=== PATIENT | female | born 1950 | race Caucasian/White ===

== ENCOUNTER 2023-09-15 23:38 | Inpatient (IN) | payer MEDICARE, MEDICAID ==
[~2023-09-15] VITALS: Ht 162.6 cm; Wt 70.8 kg
[2023-09-16 00:37] LABS: BASOPHILS % 0.8 % (0.0-2.0); EOSINOPHILS % 0.6 % (0.0-5.0); HEMATOCRIT. 36.1 % (36.0-48.0); LYMPHOCYTES % 24.3 % (20.0-50.0); MEAN CORPUSCULAR HEMOGLOBIN 32.1 pg (28.0-32.0); MEAN CORPUSCULAR HGB CONC 33.3 g/dL (31.0-37.0); MEAN CORPUSCULAR VOLUME 96.5 fL (81.0-99.0); MEAN PLATELET VOLUME 6.8 fl (7.4-10.4); MONOCYTES % 7.3 % (2.0-8.0); PLATELET 283 x1000/uL (130-400); RED BLOOD CELL COUNT 3.74 mill/uL (4.2-5.4); WHITE BLOOD COUNT 7.4 x1000/uL (4.5-11.0)
[2023-09-16 00:39] LABS: CHLORIDE 105 mEq/L (98-107); POTASSIUM 4.1 mEq/L (3.5-5.1); SODIUM 135 mEq/L (136-145)
[2023-09-16 00:40] LABS: CARBON DIOXIDE 26 mEq/L (21-32)
[2023-09-16 00:41] LABS: CALCIUM 9.1 mg/dL (8.7-10.4)
[2023-09-16 00:45] LABS: CREATININE 0.9 mg/dL (0.6-1.0); GLUCOSE 131 mg/dL (70-105); UREA NITROGEN BLOOD 13 mg/dL (9-23)
[2023-09-16 04:01] LABS: CLARITY URINE CLEAR (CLEAR); COLOR URINE YELLOW (YELLOW); GLUCOSE URINE NEGATIVE (NEGATIVE); KETONES URINE NEGATIVE (NEGATIVE); LEUKOCYTE ESTERASE URINE 2+ (NEGATIVE); NITRITE URINE NEGATIVE (NEGATIVE); OCCULT BLOOD URINE NEGATIVE (NEGATIVE); PROTEIN URINE NEGATIVE (NEGATIVE); SPECIFIC GRAVITY URINE 1.018 (1.005-1.030); UROBILINOGEN URINE 0.2 E.U./dL (0.2-1.0)
[2023-09-16 05:27] LABS: SQUAMOUS EPITHELIAL CELL URINE FEW /lpf (RARE/1+)
[2023-09-16 05:28] LABS: RBC URINE 0-2 /hpf (0-2)
[2023-09-16 05:30] LABS: BACTERIA URINE NONE SEEN
[2023-09-16] MEDS: KETOROLAC 30MG/ML VIAL IV ONE (05:44)
[2023-09-16] MEDS: ACETAMINOPHEN 500MG TABLET PO ONE (05:46)
[2023-09-16] MEDS: MORPHINE SULFATE 4 MG/ML INJ (FOR IV/IM USE) IM ONE (05:54)
[2023-09-16] MEDS ORDERED: CLONIDINE 0.1MG TABLET PO PRN (08:30)
[2023-09-16] MEDS ORDERED: MAGNESIUM/ALUMINUM HYDROXIDE/SIMETHICONE 30ML UDC PO PRN (08:30)
[2023-09-16] MEDS ORDERED: ACETAMINOPHEN 325MG TABLET PO PRN (08:30)
[2023-09-16] MEDS ORDERED: HYDROCODONE/ACETAMINOPHEN 5/325MG TABLET PO PRN (08:30)
[2023-09-16] MEDS ORDERED: ONDANSETRON HCL 4MG/2ML INJ IV PRN (08:30)
[2023-09-16] MEDS ORDERED: ENOXAPARIN 40MG/0.4ML SYR SUBCUT SCH (08:30)
[2023-09-16] MEDS ORDERED: GUAIFENESIN 200MG/10ML SUGAR FREE UDC PO PRN (08:30)
[2023-09-16] MEDS ORDERED: NALOXONE HCL 0.4MG/ML VIAL IV PRN (09:45)
[2023-09-16 10:36] VITALS: BP 139/69; PULSE 88; RESP 20; TEMP 97.5
[2023-09-16 12:00] VITALS: BP 111/62; PULSE 80; RESP 18; TEMP 97
[2023-09-16 12:01] LABS: HEPATITIS B SURFACE ANTIGEN NEGATIVE (Negative)
[2023-09-16 12:21] LABS: HEPATITIS A AB IGM NEGATIVE (Negative)
[2023-09-16 12:23] LABS: HEPATITIS B CORE AB IGM NEGATIVE (Negative); HEPATITIS C AB NON REACTIVE (Neg) (Negative)
[2023-09-16 16:00] VITALS: BP 119/56; PULSE 94; RESP 18; TEMP 98.2
[2023-09-16] MEDS: ENOXAPARIN 40MG/0.4ML SYR SUBCUT SCH (16:18)
[2023-09-16] MEDS: SODIUM CHLORIDE 0.9% 1,000 ML IV SCH (16:18)
[2023-09-16 16:30] LABS: CREATINE KINASE 65 IU/L (34-145)
[2023-09-16 16:33] LABS: TROPONIN I HIGH SENSITIVITY < 4 ng/L (3.0-34)
[2023-09-16 20:00] VITALS: BP 113/75; PULSE 81; RESP 18; TEMP 97.5
[2023-09-16] MEDS: FAMOTIDINE 20MG TABLET PO SCH (21:00)
[2023-09-16 23:56] LABS: CREATINE KINASE 62 IU/L (34-145)
[2023-09-17] VITALS: BP 92/59; PULSE 78; RESP 18; TEMP 97.3
[2023-09-17 00:02] LABS: TROPONIN I HIGH SENSITIVITY < 4 ng/L (3.0-34)
[2023-09-17 04:00] VITALS: BP 111/65; PULSE 82; RESP 18; TEMP 97.4
[2023-09-17 06:02] LABS: BASOPHILS % 0.9 % (0.0-2.0); HEMATOCRIT. 33.1 % (36.0-48.0); HEMOGLOBIN. 11.2 g/dL (12.0-16.0); LYMPHOCYTES % 45.9 % (20.0-50.0); MEAN CORPUSCULAR HEMOGLOBIN 31.9 pg (28.0-32.0); MEAN CORPUSCULAR HGB CONC 33.9 g/dL (31.0-37.0); MEAN PLATELET VOLUME 6.8 fl (7.4-10.4); MONOCYTES % 9.1 % (2.0-8.0); NEUTROPHILS % 42.1 % (40.0-76.0); PLATELET 267 x1000/uL (130-400); RED BLOOD CELL COUNT 3.52 mill/uL (4.2-5.4); RED CELL DISTRIBUTION WIDTH 15.1 % (11.6-14.6); WHITE BLOOD COUNT 5.1 x1000/uL (4.5-11.0)
[2023-09-17 06:07] LABS: CARBON DIOXIDE 24 mEq/L (21-32); CHLORIDE 108 mEq/L (98-107); POTASSIUM 3.8 mEq/L (3.5-5.1); SODIUM 138 mEq/L (136-145)
[2023-09-17 06:12] LABS: CREATININE 0.7 mg/dL (0.6-1.0); GLUCOSE 103 mg/dL (70-105)
[2023-09-17 06:13] LABS: TRIGLYCERIDE 198 mg/dL (0-150); UREA NITROGEN BLOOD 8 mg/dL (9-23)
[2023-09-17 06:14] LABS: ALANINE AMINOTRANSFERASE 13 IU/L (10-49); ALBUMIN 4.3 g/dL (3.2-4.8); ASPARTATE AMINOTRANSFERASE 16 IU/L (<34); LDL CHOLESTEROL 146 mg/dL (5-100)
[2023-09-17 06:15] LABS: BILIRUBIN TOTAL 0.5 mg/dL (0.1-1.0); CHOLESTEROL 200 mg/dL (<200); HDL CHOLESTEROL 40 mg/dL (>65); PROTEIN TOTAL 5.9 g/dL (6.0-8.3)
[2023-09-17 06:17] LABS: T4 FREE 0.79 ng/dL (0.89-1.76); THYROID STIMULATING HORMONE 54.56 uIU/mL (0.55-4.78)
[2023-09-17 08:00] VITALS: BP 114/69; PULSE 77; RESP 18; TEMP 96.3
[2023-09-17 12:00] VITALS: BP 101/61; PULSE 77; RESP 18; TEMP 97.7
[2023-09-17 16:00] VITALS: BP 141/83; PULSE 90; RESP 18; TEMP 98.5
[2023-09-17 20:00] VITALS: BP 106/72; PULSE 89; RESP 20; TEMP 98.3
[2023-09-18 06:51] LABS: CHLORIDE 108 mEq/L (98-107); POTASSIUM 3.9 mEq/L (3.5-5.1); SODIUM 139 mEq/L (136-145)
[2023-09-18 06:52] LABS: CALCIUM 8.8 mg/dL (8.7-10.4); CARBON DIOXIDE 24 mEq/L (21-32)
[2023-09-18] MEDS: LEVOTHYROXINE SODIUM 150MCG TABLET PO SCH (06:53)
[2023-09-18 06:57] LABS: CREATININE 0.8 mg/dL (0.6-1.0); GLUCOSE 103 mg/dL (70-105); UREA NITROGEN BLOOD 8 mg/dL (9-23)
[2023-09-18 06:59] LABS: ALANINE AMINOTRANSFERASE 15 IU/L (10-49); ALBUMIN 4.3 g/dL (3.2-4.8); ASPARTATE AMINOTRANSFERASE 16 IU/L (<34)
[2023-09-18 07:00] LABS: BILIRUBIN DIRECT 0.1 mg/dL (<=3.0); BILIRUBIN TOTAL 0.4 mg/dL (0.1-1.0); EOSINOPHILS % 1.9 % (0.0-5.0); HEMATOCRIT. 34.8 % (36.0-48.0); HEMOGLOBIN. 11.8 g/dL (12.0-16.0); LYMPHOCYTES % 39.6 % (20.0-50.0); MEAN CORPUSCULAR HGB CONC 33.9 g/dL (31.0-37.0); MEAN CORPUSCULAR VOLUME 94.2 fL (81.0-99.0); MEAN PLATELET VOLUME 7.2 fl (7.4-10.4); MONOCYTES % 7.5 % (2.0-8.0); PHOSPHORUS 3.8 mg/dL (2.5-4.9); PLATELET 300 x1000/uL (130-400); PROTEIN TOTAL 5.7 g/dL (6.0-8.3); RED BLOOD CELL COUNT 3.69 mill/uL (4.2-5.4); RED CELL DISTRIBUTION WIDTH 15.2 % (11.6-14.6); WHITE BLOOD COUNT 5.8 x1000/uL (4.5-11.0)
[2023-09-18 08:00] VITALS: BP 97/67; PULSE 78; RESP 18; TEMP 97.9
[2023-09-18] MEDS ORDERED: MAGNESIUM 4 G PREMIX 100 ML IV NR (09:00)
[2023-09-18] MEDS ORDERED: LACTULOSE 20G/30ML UDC PO PRN (09:15)
[2023-09-18] MEDS ORDERED: BISACODYL 10MG SUPP PR PRN (09:15)
[2023-09-18] MEDS: DOCUSATE SODIUM 250MG CAPSULE PO SCH (09:15)
[2023-09-18] MEDS: DOCUSATE SODIUM 100MG CAPSULE PO PRN (09:17)
[2023-09-18] MEDS: ACETAMINOPHEN 325MG TABLET PO PRN (09:18)
[2023-09-18 12:00] VITALS: BP 111/60; PULSE 96; RESP 18; TEMP 98.6
[2023-09-18 12:31] VITALS: BP 107/72; PULSE 78; TEMP 97.6; O2SAT 97
== END 2023-09-18 17:44 | disposition home or self-care (01) | DRG 395 ==
LOC: ER 23:38 → 5WST 09-16 05:38 → 6WST 09-16 09:39
PROVIDERS: ADMIT Internal Medicine; ATTEND Internal Medicine
DX: K43.9 Ventral hernia without obstruction or gangrene (principal); D73.4 Cyst of spleen; K76.0 Fatty (change of) liver, not elsewhere classified; E89.0 Postprocedural hypothyroidism; K82.8 Other specified diseases of gallbladder; K45.8 Other specified abdominal hernia without obstruction or gangrene; K64.9 Unspecified hemorrhoids; E78.1 Pure hyperglyceridemia; D18.03 Hemangioma of intra-abdominal structures; K59.00 Constipation, unspecified; Z85.42 Personal history of malignant neoplasm of other parts of uterus; Z90.710 Acquired absence of both cervix and uterus
CPT/HCPCS: 36415; 71045; 74176; 76700; 80048; 80053; 80061; 80076; 81003; 82550; 83735; 84100; 84439; 84443; 84484; 85025; 86705; 86709; 87340; 93306; 93970; 99285; J1650; J1885; J2270; J3475